=== PATIENT | male | born 1960 | race Caucasian/White ===

== ENCOUNTER 2020-05-17 02:36 | Outpatient (CLI) | payer OTHER, SELFPAY ==
[2020-05-17 14:27] LABS: ALT 130 U/L (16-63); AST 34 U/L (15-37); Albumin 3.6 g/dL (3.4-5.0); Alkaline Phosphatase 113 U/L (46-116); Anion Gap 4.3 mmol/L (3-11); BUN 14 mg/dL (7-18); Bilirubin, Total 0.7 mg/dL (0.2-1.0); CO2 30.7 mmol/L (21.0-32.0); CREATININE 1.24 mg/dL (0.70-1.30); Calcium 8.8 mg/dL (8.5-10.1); Chloride 101 mmol/L (98-107); Estimated GFR 59.47 (mL/min/1.73m2); Glucose 97 mg/dL (74-106); Potassium 4.8 mmol/L (3.5-5.1); Sodium 136 mmol/L (136-145); Total Protein 6.7 g/dL (6.4-8.2)
== END 2020-05-17 02:56 ==
DX: C64.9 Malignant neoplasm of unspecified kidney, except renal pelvis (principal)
CPT/HCPCS: 36415; 80053